=== PATIENT | male | born 1955 | race African-American/Black ===

== ENCOUNTER 2018-04-09 13:40 | Emergency (ER) | payer SELFPAY ==
[~2018-04-09] VITALS: Ht 175.3 cm; Wt 120.0 kg
[2018-04-09] MEDS ORDERED: ONDANSETRON HCL 4MG/2ML VIAL IV STA (14:36)
[2018-04-09] MEDS ORDERED: LORAZEPAM 2MG/ML CPJ IV STA (14:36)
[2018-04-09] MEDS ORDERED: SODIUM CHLORIDE 0.9% 1,000 ML IV ONE ×2 (14:36→18:37)
[2018-04-09 16:31] LABS: BASOPHILS % 0.3 % (0.0-2.0); EOSINOPHILS % 1.7 % (0.0-5.0); HEMOGLOBIN. 9.4 g/dL (14.0-18.0); LYMPHOCYTES % 23.8 % (20.0-50.0); MEAN CORPUSCULAR HEMOGLOBIN 31.4 pg (28.0-32.0); MEAN PLATELET VOLUME 8.3 fl (7.4-10.4); MONOCYTES % 9.7 % (2.0-8.0); NEUTROPHILS % 64.5 % (40.0-76.0); PLATELET 185 x1000/uL (130-400); RED CELL DISTRIBUTION WIDTH 14.9 % (11.6-14.6)
[2018-04-09 16:35] LABS: CHLORIDE 116 mEq/L (98-107)
[2018-04-09 16:36] LABS: PROTHROMBIN TIME 10.8 sec (9.4-11.6)
[2018-04-09 16:39] LABS: ETHANOL BLOOD < 10 mg/dL
[2018-04-09 16:43] LABS: AMMONIA 36 uMol/L (<32); CREATINE KINASE 718 IU/L (39-308)
[2018-04-09 16:47] LABS: CLARITY URINE CLEAR (CLEAR); COLOR URINE YELLOW (YELLOW); KETONES URINE NEGATIVE (NEGATIVE); LEUKOCYTE ESTERASE URINE NEGATIVE (NEGATIVE); NITRITE URINE NEGATIVE (NEGATIVE); OCCULT BLOOD URINE NEGATIVE (NEGATIVE); PROTEIN URINE NEGATIVE (NEGATIVE); SPECIFIC GRAVITY URINE 1.017 (1.005-1.030); UROBILINOGEN URINE 0.2 E.U./dL (0.2-1.0)
[2018-04-09 17:12] LABS: *AMPHETAMINES SCREEN URINE NEGATIVE (NEGATIVE); *BARBITURATES SCREEN URINE NEGATIVE (NEGATIVE); *BENZODIAZEPINES SCREEN URINE PRESUMTIVE POSITIVE (NEGATIVE); *COCAINE SCREEN URINE NEGATIVE (NEGATIVE); CANNABINOID URINE SCREEN PRESUMTIVE POSITIVE (NEGATIVE); METHADONE URINE SCREEN NEGATIVE (NEGATIVE); OPIATES URINE SCREEN PRESUMTIVE POSITIVE (NEGATIVE); PHENCYCLIDINE URINE SCREEN NEGATIVE (NEGATIVE)
[2018-04-09 19:00] VITALS: BP 138/82
== END 2018-04-09 19:06 | disposition home or self-care (01) ==
LOC: ER 14:05
DX: G93.40 Encephalopathy, unspecified (principal); T50.7X1A Poisoning by analeptics and opioid receptor antagonists, accidental (unintentional), initial encounter; M62.82 Rhabdomyolysis; F11.10 Opioid abuse, uncomplicated; E86.0 Dehydration; M25.552 Pain in left hip; I10 Essential (primary) hypertension; J45.909 Unspecified asthma, uncomplicated; F31.9 Bipolar disorder, unspecified; E11.9 Type 2 diabetes mellitus without complications; R79.1 Abnormal coagulation profile; Z87.891 Personal history of nicotine dependence; Z88.5 Allergy status to narcotic agent; Y92.89 Other specified places as the place of occurrence of the external cause
CPT/HCPCS: 36415; 70450; 71045; 72170; 80053; 80305; 80307; 80329; 81003; 82140; 82550; 84443; 84484; 85025; 85610; 93005; 96360; 96361; 99285; G0482; J7030; Z7610